=== PATIENT | male | born 1985 | race Caucasian/White ===

== ENCOUNTER 2023-12-08 19:30 | Emergency (ER) | payer OTHER ==
[~2023-12-08] VITALS: Ht 190.5 cm; Wt 81.2 kg
[~2023-12-08 19:30] MED LIST: PRED10 PO; Percocet 5-3251 EACH PO; Robaxin500 MG PO
[2023-12-08 19:38] VITALS: BP 152/60
[2023-12-08 20:28] LABS: BASOPHILS ABSOLUTE AUTO 0.06 K/mm3 (0.00-0.23); BASOPHILS PERCENT AUTO 1 % (0-2); EOSINOPHILS ABSOLUTE AUTO 0.06 K/mm3 (0.00-0.68); EOSINOPHILS PERCENT AUTO 1 % (0-6); Hematocrit 39.8 % (37.0-53.0); Hemoglobin 13.7 g/dL (13.5-17.5); IMMATURE GRAN ABSOLUTE AUTO 0.04 K/mm3 (0.00-0.10); IMMATURE GRAN PERCENT AUTO 0 % (0-1); LYMPHOCYTES ABSOLUTE AUTO 1.21 K/mm3 (0.84-5.20); LYMPHOCYTES PERCENT AUTO 12 % (21-46); MONOCYTES ABSOLUTE AUTO 0.65 K/mm3 (0.16-1.47); MONOCYTES PERCENT AUTO 6 % (4-13); Mean Corpuscular HGB 30.4 pg (26.0-34.0); Mean Corpuscular HGB Conc 34.4 g/dL (31.5-36.5); Mean Corpuscular Volume 88 fL (80-100); Mean Platelet Volume 9.4 fL (9.1-12.4); NEUTROPHILS ABSOLUTE AUTO 8.14 K/mm3 (1.96-9.15); NEUTROPHILS PERCENT AUTO 80 % (41-73); Platelet Count 201 K/mm3 (150-400); RDW Coefficient Variation 11.8 % (11.7-14.2); RDW Standard Deviation 37.8 fL (35.1-46.3); White Blood Cell Count 10.16 K/mm3 (4.00-11.30)
[2023-12-08 20:41] LABS: Albumin/Globulin Ratio 1.3 (0.8-1.8); Bilirubin, Total 1.5 mg/dL (0.1-1.0); Bun/Creatinine Ratio 10.9 (12.0-20.0); Calcium, Blood 9.3 mg/dL (8.5-10.1); Creatinine, Blood 0.83 mg/dL (0.60-1.20); Globulin, Blood 3.1 g/dL (2.2-4.0); Potassium, Blood 3.9 mmol/L (3.5-5.5); Total Protein, Blood 7.1 g/dL (6.4-8.2)
== END 2023-12-08 21:32 | disposition home or self-care (01) ==
LOC: ER 19:30
PROVIDERS: Student in an Organized Health Care Education/Training Program
DX: R00.2 Palpitations (principal); F41.9 Anxiety disorder, unspecified
CPT/HCPCS: 71046; 80053; 84484; 85025; 93005; 93010; 99285-25

== ENCOUNTER 2024-11-27 16:40 | Emergency (ER) | payer OTHER ==
[~2024-11-27] VITALS: Ht 193 cm; Wt 81.7 kg
[2024-11-27] MEDS ORDERED: TiZANidine HCl 4 MG Tab PO ONE (17:10)
[2024-11-27] MEDS ORDERED: LIDO700A20 TOP (18:33)
[2024-11-27] MEDS ORDERED: Prednisone20 MG PO (18:33)
[2024-11-27] MEDS ORDERED: TIZA4 PO (18:33)
[2024-11-27 18:39] VITALS: BP 92/69
== END 2024-11-27 18:39 | disposition home or self-care (01) ==
LOC: ER 16:40
DX: M54.50 Low back pain, unspecified (principal); M62.830 Muscle spasm of back; Z79.899 Other long term (current) drug therapy
CPT/HCPCS: 72100; 99284-25; A9270

== ENCOUNTER 2025-07-16 10:01 | Day surgery (SDC) | payer OTHER ==
[~2025-07-16] VITALS: Ht 193 cm; Wt 77.2 kg
[~2025-07-16 10:01] MED LIST changes: +LIDO700A20 TOP; +Prednisone20 MG PO; +TIZA4 PO
[2025-07-16] MEDS ORDERED: IBU800 M1 (10:15)
[2025-07-16] MEDS ORDERED: GABA100 (10:15)
[2025-07-16] MEDS ORDERED: Midazolam HCL 1 MG/ML 5MLVIAL ONE (11:10)
[2025-07-16 12:36] VITALS: BP 110/60
== END 2025-07-16 12:25 | disposition home or self-care (01) ==
LOC: ORSCSDS 10:01
PROVIDERS: Internal Medicine Gastroenterology
PROC: 0DBL8ZX Excision of Transverse Colon, Via Natural or Artificial Opening Endoscopic, Diagnostic (ICD-10-PCS; principal; 2025-07-16 11:30)
PROC: 0DBN8ZX Excision of Sigmoid Colon, Via Natural or Artificial Opening Endoscopic, Diagnostic (ICD-10-PCS; principal; 2025-07-16 11:30)
PROC: 0DJ08ZZ Inspection of Upper Intestinal Tract, Via Natural or Artificial Opening Endoscopic (ICD-10-PCS; principal; 2025-07-16 11:30)
DX: R19.4 Change in bowel habit (principal); D12.3 Benign neoplasm of transverse colon; D12.5 Benign neoplasm of sigmoid colon; K21.9 Gastro-esophageal reflux disease without esophagitis; R10.84 Generalized abdominal pain
CPT/HCPCS: 88305; J2250; J2704; J7120